=== PATIENT | male | born 1955 | race Caucasian/White ===

== ENCOUNTER 2019-04-26 13:03 | Emergency (ER) | payer BC ==
[~2019-04-26] VITALS: Ht 185.4 cm; Wt 148.6 kg
[2019-04-26] MEDS ORDERED: HYDROCHLOROTHIA50 M1 PO ×2 (13:11→15:29)
[2019-04-26] MEDS ORDERED: NORVASC 10MG10 MG PO ×2 (13:11→15:28)
[2019-04-26] MEDS ORDERED: LOSARTAN POTAS100 MG PO (13:11)
[2019-04-26] MEDS ORDERED: METOPROLOL SUC200 M1 PO ×2 (13:11→15:28)
[2019-04-26 13:45] LABS: EOS # 0.1 (0.04-0.40); EOS % 1.1 % (0.0-4.0); HEMATOCRIT 40.3 % (42.0-52.0); HEMOGLOBIN 13.6 g/dL (13.5-18.0); LYMPH# 1.5 (1.50-4.00); MEAN CELL VOLUME 80 fl (78-100); MEAN CORPUSCULAR HEMOGLOBIN 27 pg (27-31); MEAN CORPUSCULAR HGB CONC 34 g/dL (33-37); MEAN PLATELET VOLUME 10.7 fl (7.4-10.4); MONO # 0.5 (0.20-0.80); NEU # 4.1 (1.40-6.50); PLATELET COUNT 161 K/mm3 (130-400); RED BLOOD COUNT 5.05 M/mm3 (4.20-5.60); WHITE BLOOD COUNT 6.1 K/mm3 (4.8-10.8)
[2019-04-26 13:58] LABS: ALBUMIN 4.3 g/dL (3.4-4.8); POTASSIUM 3.7 mmol/L (3.5-5.1)
[2019-04-26 14:00] LABS: CALCIUM 9.4 mg/dL (8.3-10.5)
[2019-04-26 14:01] LABS: TOTAL PROTEIN 7.6 g/dL (6.2-8.1)
[2019-04-26 14:03] LABS: TOTAL BILIRUBIN 0.7 mg/dL (0.2-1.2)
[2019-04-26 14:06] LABS: URINE COLOR YELLOW
[2019-04-26 14:07] LABS: URINE APPEARANCE HAZY; URINE BILIRUBIN NEGATIVE (NEGATIVE); URINE BLOOD TRACE (NEGATIVE); URINE GLUCOSE NEGATIVE (NEGATIVE); URINE KETONE NEGATIVE (NEGATIVE); URINE LEUKOCYTE ESTERASE NEGATIVE (NEGATIVE); URINE NITRATE NEGATIVE (NEGATIVE); URINE PROTEIN(semi-quant) TRACE mg/dL (NEGATIVE); URINE UROBILINOGEN NORMAL (NORMAL)
[2019-04-26] MEDS ORDERED: CIPRO500 M1 PO (15:28)
[2019-04-26] MEDS ORDERED: COZAAR100 MG PO (15:28)
[2019-04-26 16:15] VITALS: BP 200/99
== END 2019-04-26 15:50 | disposition home or self-care (01) ==
LOC: ED 13:03
PROVIDERS: Nurse Practitioner Primary Care
DX: N30.00 Acute cystitis without hematuria (principal); R33.9 Retention of urine, unspecified; I10 Essential (primary) hypertension

== ENCOUNTER → 2022-12-30 | Day surgery (SDC) | payer BC ==
[~2022-12-30] MED LIST: CIPRO500 M1 PO; COZAAR100 MG PO; HYDROCHLOROTHIA50 M1 PO; LOSARTAN POTAS100 MG PO; METOPROLOL SUC200 M1 PO; NORVASC 10MG10 MG PO
== END | disposition home or self-care (01) ==
LOC: MSO 08:55
DX: D50.9 Iron deficiency anemia, unspecified (principal); D12.0 Benign neoplasm of cecum; E66.9 Obesity, unspecified
CPT/HCPCS: 00811; J2704; J3010; J7120